=== PATIENT | female | born 1950 | race Caucasian/White ===

== ENCOUNTER 2021-11-20 09:18 | Outpatient (CLI) | payer MEDICARE, SELFPAY ==
--- NOTE | ~2021-11-20 | XR_ITS ---
XR foot RT standing 2V DATE: 11/20/2021 10:18 INDICATION: Abnormal immunological findings TECHNIQUE: Weightbearing AP and lateral views COMPARISON: None FINDINGS: There is hallux valgus. There is postoperative change from bunionectomy. There are 2 K wire s through the distal first metatarsal bone. There is mild osteophytic change at the first metatarsophalangeal joint. There is osteoarthritic benavides ge at the interphalangeal joint of the first digit. There is mild plantar and posterior calcaneal enthesopathy. No fracture or dislocation, periosteal reaction or bone destruction. IMPRESSION: Status post bunionectomy Hallux valgus Osteoarthritis Mild plantar and posterior calcaneal enthesopathy Reviewed, dictated and finalized at location B.
--- NOTE | ~2021-11-20 | XR_ITS ---
EXAM: XR sacroiliac joints min 3V DATE: 11/20/2021 10:18 HISTORY: R76.8 - Other specified abnormal immunological findings i... . COMPARISON: None available. FINDINGS: Decreased mineralization. No fracture or dislocation. No lytic or blastic lesion. Degenera tive change in the lumbar spine. Moderate degenerative change in the bilateral hips. Mild degenerativ e change in the bilateral SI joints, right greater than left. No erosion or periosteal change. Soft t issues within normal limits. IMPRESSION: Moderate bilateral hip osteoarthritis. Mild asymmetric degenerative change in the sacroil iac joints. Reviewed, dictated and finalized at location K. IMPRESSION: Moderate bilateral hip osteoarthritis. Mild asymmetric degenerative change in the sacroiliac joints.
--- NOTE | ~2021-11-20 | XR_ITS ---
EXAM: XR foot LT standing 2V DATE: 11/20/2021 10:18 HISTORY: R76.8 - Other specified abnormal immunological findings i... . COMPARISON: None available. FINDINGS: Decreased mineralization. No fracture or dislocation. No lytic or blastic lesion. Achilles and plantar enthesopathy. Moderate degenerative change at the first MTP joint. Mild degenerative saroj nge in multiple joints in the toes and midfoot. Mild loss of the longitudinal arch. No erosion or per iosteal change. Soft tissues within normal limits. IMPRESSION: Degenerative changes detailed above. Plantar and Achilles enthesopathy. Mild pes planus. Reviewed, dictated and finalized at location K. IMPRESSION: Degenerative changes detailed above. Plantar and Achilles enthesopa thy. Mild pes planus.
--- NOTE | ~2021-11-20 | XR_ITS ---
EXAM: XR hand BI arthritis min 3V DATE: 11/20/2021 10:18 HISTORY: R76.8 - Other specified abnormal immunological findings i... . COMPARISON: None available. FINDINGS: Decreased mineralization. No fracture or dislocation. No lytic or blastic lesion. Joint sp vince narrowing, subchondral sclerosis and cyst formation and osteophytosis at multiple joints, most ev ident in the interphalangeal joints of the thumbs, second and third digits and the bilateral trapezio metacarpal joints. Ulnar negative variance bilaterally with degenerative subchondral cystic change. S calloping of the distal radial cortex adjacent to the distal ulna bilaterally, greater on the right. No evidence of lunate AVN. No erosion or periosteal change. Soft tissues within normal limits. IMPRESSION: Arthritic changes typical of osteoarthritis in the bilateral hands. Bilateral ulnar impin gement syndrome, worse on the right. Reviewed, dictated and finalized at location K. IMPRESSION: Arthritic changes typical of osteoarthritis in the bilateral hands. Bilateral ulnar impingement syndrome, worse on the right.
[2021-11-20 11:12] LABS: Hematocrit 38.9 % (37.0-47.0); Mean Corpuscular HGB Conc 33.4 g/dl (32-36); Mean Corpuscular Hemoglobin 31.3 pg (26-34); Mean Corpuscular Volume 93.5 fl (80-100); Mean Platelet Volume 8.6 fl (7.4-10.4); Platelet Count Result 249 k/mm3 (150-375); Red Blood Count 4.16 M/mm3 (4.2-5.4); Red Cell Distribution Width 13.2 % (11.5-14.5); White Blood Count 8.3 K/mm3 (4.5-10.0)
[2021-11-20 11:27] LABS: Alanine Aminotransferase 38 U/L (6-35); Albumin Level 5.2 g/dL (3.5-5.1); Alkaline Phosphatase 82 U/L (38-126); Anion Gap 13 mmol/L (8-16); Aspartate Amino Transferase 42 U/L (14-36); Bilirubin,Total 0.6 mg/dL (0.2-1.3); Blood Urea Nitrogen 19 mg/dL (7-17); CRP < 0.5 mg/dL (<1.0); Calcium 10.4 mg/dL (8.4-10.2); Carbon Dioxide 25 mmol/L (22-30); Chloride 93 mmol/L (98-107); Estimated Glomerular Filt Rate > 60; Glucose 122 mg/dL (65-110); Potassium 3.6 mmol/L (3.4-5.0); Sodium 131 mmol/L (137-145); Uric Acid 4.1 mg/dL (2.5-7.5)
[2021-11-20 11:33] LABS: Complement C3 102 mg/dL (88-165)
[2021-11-20 12:06] LABS: Vitamin D 25 Hydroxy 51.4 ng/mL
[2021-11-20 13:11] LABS: Erythrocyte Sedimentation Rate 4 mm/hr (0-20)
[2021-11-22 11:28] LABS: Anti Cyclic Citrullinated Pept <16 Units (<20)
[2021-11-23 21:40] LABS: Angiotensin Converting Enzyme 12.3 U/L (9-67)
[2021-11-24 13:22] LABS: SM Antibody <1.0; SM/RNP Antibody <1.0
[2021-11-26 10:42] LABS: SS-A <1.0; SS-B <1.0
== END 2021-11-20 09:19 | disposition home or self-care (01) ==
PROVIDERS: PCP Family Medicine; Visit Provider Internal Medicine
DX: R76.8 Other specified abnormal immunological findings in serum (principal); M79.641 Pain in right hand; M79.642 Pain in left hand; Z71.89 Other specified counseling; R89.9 Unspecified abnormal finding in specimens from other organs, systems and tissues; M19.041 Primary osteoarthritis, right hand; M19.042 Primary osteoarthritis, left hand; M77.32 Calcaneal spur, left foot; M16.0 Bilateral primary osteoarthritis of hip; M53.3 Sacrococcygeal disorders, not elsewhere classified; M20.11 Hallux valgus (acquired), right foot; M19.071 Primary osteoarthritis, right ankle and foot; M77.31 Calcaneal spur, right foot
CPT/HCPCS: 36415; 72202; 73130; 73620; 80053; 82164; 82306; 84550; 85027; 85652; 86140; 86160; 86200; 86225; 86235